=== PATIENT | male | born 1965 | race Caucasian/White ===

== ENCOUNTER 2022-01-15 18:01 | Observation (INO) ==
[2022-01-15] MEDS ORDERED: Lidocaine -MPF 1% 2 ML VIAL ID ONE (21:15)
[2022-01-15] MEDS ORDERED: *HR* OxyCODONE Immed Rel 5 MG TABLET PO ONE (21:15)
[2022-01-15 21:58] LABS: Basophils # 0.1 K/mcL (0.0-0.2); Basophils % 0.9 %; Eosinophils # 0.1 K/mcL (0.0-0.6); Eosinophils % 0.9 %; Hematocrit 43.2 % (37.5-50.1); Hemoglobin 13.8 g/dL (12.9-16.9); Immature Granulocytes % 0.3 % (0-4); Lymphocytes # 2.6 K/mcL (0.6-4.6); Lymphocytes % 23.2 %; Mean Corpuscular HGB Conc 31.9 g/dL (31.6-35.5); Mean Corpuscular Hemoglobin 26.3 pg (28.0-33.3); Mean Corpuscular Volume 82.3 fL (83.0-100.0); Mean Platelet Volume 9.7 fL (9.4-12.4); Monocytes # 0.7 K/mcL (0.0-1.3); Monocytes % 6.3 %; Neutrophils # 7.8 K/mcL (1.6-8.9); Platelet Count 297 K/mcL (140-400); Red Blood Count 5.25 M/mcL (4.19-5.50); Red Cell Distribution Width 14.6 % (11.5-14.5); Segmented Neutrophils % 68.4 %; White Blood Count 11.4 K/mcL (4.3-11.1)
[2022-01-15 22:05] LABS: INR 1.4; Prothrombin Time 15.9 Seconds (9.4-12.1)
[2022-01-15 22:16] LABS: BUN/Creatinine Ratio 19 (6-26); Blood Urea Nitrogen 15 mg/dL (6-20); Carbon Dioxide 24 mEq/L (23-29); Chloride 105 mEq/L (98-107); Glucose 78 mg/dL (70-105); Osmolality,Calculated 280 (280-300); Potassium 4.2 mEq/L (3.5-5.1); Sodium 135 mEq/L (136-145)
[2022-01-15 23:15] LABS: Source,Synovial Fluid JOINT
[2022-01-15 23:19] LABS: Appearance,Synovial Fluid Bloody (Clear-Hazy); Color,Synovial Fluid Red (Straw)
[2022-01-15] MEDS ORDERED: Naloxone 0.4 MG/ML INJ IVP PRN (23:19)
[2022-01-15] MEDS ORDERED: Melatonin 3 MG TABLET PO PRN (23:19)
[2022-01-15] MEDS ORDERED: Ondansetron ODT 4 MG TAB.RAPDIS SL PRN (23:19)
[2022-01-16] MEDS: *HR* HYDROcodone/Acet 5/325 mg TABLET PO PRN ×4 (00:56→20:09)
[2022-01-16 05:29] LABS: Hematocrit 40.5 % (37.5-50.1); Hemoglobin 12.7 g/dL (12.9-16.9); Mean Corpuscular HGB Conc 31.4 g/dL (31.6-35.5); Mean Corpuscular Hemoglobin 26.1 pg (28.0-33.3); Mean Corpuscular Volume 83.2 fL (83.0-100.0); Mean Platelet Volume 9.8 fL (9.4-12.4); Platelet Count 275 K/mcL (140-400); Red Blood Count 4.87 M/mcL (4.19-5.50); Red Cell Distribution Width 14.6 % (11.5-14.5); White Blood Count 8.5 K/mcL (4.3-11.1)
[2022-01-16 06:43] LABS: BUN/Creatinine Ratio 14 (6-26); Blood Urea Nitrogen 13 mg/dL (6-20); Calcium 8.8 mg/dL (8.6-10.3); Carbon Dioxide 27 mEq/L (23-29); Chloride 106 mEq/L (98-107); Glucose 86 mg/dL (70-105); Osmolality,Calculated 285 (280-300); Phosphorous 3.5 mg/dL (2.7-4.5); Potassium 3.6 mEq/L (3.5-5.1); Sodium 138 mEq/L (136-145)
[2022-01-16] MEDS: Aspirin Enteric Coated 81 MG Tablet PO SCH (07:37)
[2022-01-16] MEDS ORDERED: *HR* Rivaroxaban 10 MG TABLET PO SCH (09:00)
[2022-01-16] MEDS ORDERED: Ipratropium/Albuterol Neb 3 ML IH PRN (13:31)
[2022-01-16] MEDS ORDERED: Nitroglycerin 0.4 MG TAB.SUBL SL PRN (13:33)
[2022-01-16] MEDS: carvediloL 6.25 MG TABLET PO SCH (17:08)
[2022-01-16] MEDS: tiZANidine 4 MG TABLET PO PRN (17:09)
[2022-01-17] MEDS ORDERED: traZODone 50 MG TABLET PO ONE (00:19)
[2022-01-17] MEDS: *HR* HYDROcodone/Acet 5/325 mg TABLET PO PRN ×2 (03:57→10:11)
[2022-01-17 05:03] LABS: Calcium 8.9 mg/dL (8.6-10.3); Potassium 4.2 mEq/L (3.5-5.1)
[2022-01-17 05:16] LABS: Basophils # 0.1 K/mcL (0.0-0.2); Basophils % 1.1 %; Eosinophils # 0.1 K/mcL (0.0-0.6); Eosinophils % 1.1 %; Hematocrit 40.3 % (37.5-50.1); Hemoglobin 12.5 g/dL (12.9-16.9); Immature Granulocytes % 0.1 % (0-4); Lymphocytes # 2.5 K/mcL (0.6-4.6); Lymphocytes % 31.4 %; Mean Corpuscular Hemoglobin 25.8 pg (28.0-33.3); Mean Corpuscular Volume 83.1 fL (83.0-100.0); Mean Platelet Volume 9.9 fL (9.4-12.4); Monocytes # 0.8 K/mcL (0.0-1.3); Monocytes % 9.3 %; Neutrophils # 4.6 K/mcL (1.6-8.9); Platelet Count 265 K/mcL (140-400); Red Blood Count 4.85 M/mcL (4.19-5.50); Red Cell Distribution Width 14.6 % (11.5-14.5); White Blood Count 8.1 K/mcL (4.3-11.1)
[2022-01-17 10:06] VITALS: O2SAT 93
[2022-01-17] MEDS: carvediloL 6.25 MG TABLET PO SCH (10:06)
[2022-01-17] MEDS: Aspirin Enteric Coated 81 MG Tablet PO SCH (10:06)
[2022-01-17 11:55] VITALS: BP 116/76; PULSE 59; TEMP 98.1
[2022-01-17] MEDS ORDERED: Doxycycline 100 MG CAPSULE PO ONE (14:01)
[2022-01-17] MEDS: tiZANidine 4 MG TABLET PO PRN (14:24)
== END 2022-01-17 16:05 | disposition home or self-care (01) ==
LOC: EMEROOARM 18:01 → 4WAOSI 18:01 → SUATTDRO 23:30 → 4WAOSI 01-16
PROVIDERS: ADMIT Internal Medicine; ATTEND Pharmacist